=== PATIENT | male | born 1935 | race Caucasian/White ===

== ENCOUNTER → 2018-02-07 | Emergency (ER) | payer OTHER ==
[~2018-02-07] VITALS: Ht 193 cm; Wt 111.1 kg
[~2018-02-07] MED LIST: CELECOXIB100 MG PO
== END | disposition home or self-care (01) ==
LOC: ER 04:00
DX: S62.616A Displaced fracture of proximal phalanx of right little finger, initial encounter for closed fracture (principal); W01.198A Fall on same level from slipping, tripping and stumbling with subsequent striking against other object, initial encounter; Y93.01 Activity, walking, marching and hiking; Y92.480 Sidewalk as the place of occurrence of the external cause; Y99.8 Other external cause status